=== PATIENT | male | born 1985 | race Two or more races ===

== ENCOUNTER 2019-06-29 10:01 | Emergency (ER) | payer MEDICAID ==
[~2019-06-29] VITALS: Ht 175.3 cm; Wt 99.8 kg
--- NOTE | 2019-06-29 10:11 | NUR ---
ED Nurse Note: Pt ambulated to ED c/o low back pain, denies difficulty of urinating, chills nor fever. Pt is AOx4, on RA, NAD. Per pt he has hx of chlamydia. Placed on bed.
[2019-06-29 10:15] VITALS: BP 123/72
--- NOTE | 2019-06-29 10:17 | NUR ---
ED Nurse Note: Dr. Clayton on bedside.
--- NOTE | 2019-06-29 10:23 | Emergency Room Report ---
History of Present Illness General Chief Complaint: Back Pain-No Injury Source: Patient Present Illness HPI Patient is a 34-year-old male who presents after increased low back pain. Gradual onset of symptoms. Reports having recent pain to the right side. Recently diagnosed and treated with a single dose of antibiotics for chlamydia. Denies any continued discharge. Denies any fever. Had tested negative for HIV as well as syphilis. Denies any fever. Denies any abdominal pain or vomiting or diarrhea. Pain is worse with movement. Allergies: Coded Allergies: No Known Allergies (Unverified , 06/29/19) Patient History Past Medical History: see triage record Reviewed Nursing Documentation: PMH: Agreed; PSxH: Agreed Nursing Documentation-PMH Past Medical History: No Stated History Review of Systems All Other Systems: negative except mentioned in HPI Physical Exam Vital Signs Date Time Temp Pulse Resp B/P (MAP) Pulse Ox O2 Delivery O2 Flow Rate FiO2 06/29/19 10:04 97.3 85 20 123/72 (89) 98 Room Air Sp02 EP Interpretation: reviewed, normal General Appearance: normal inspection, well appearing, no apparent distress, alert, GCS 15 Head: atraumatic ENT: normal ENT inspection, hearing grossly normal, normal voice Neck: normal inspection, full range of motion, supple, no bony tend Respiratory: normal inspection, lungs clear, normal breath sounds, no respiratory distress, no retraction, no wheezing Cardiovascular #1: regular rate, rhythm, no edema Gastrointestinal: normal inspection, normal bowel sounds, non tender, soft, no guarding, no hernia Genitourinary: no CVA tenderness Musculoskeletal: normal inspection, back normal, normal range of motion Neurologic: alert, motor strength/tone normal, global compensation director III-XII nml as tested, oriented x3, responsive, speech normal, normal inspection Psychiatric: normal inspection, judgement/insight normal, mood/affect normal Medical Decision Making Diagnostic Impression: Primary Impression: Back pain ER Course Patient present for low back pain . differential diagnosis included but was not limited to herniated disc, cauda equina syndrome, abdominal aortic aneurysm, perforated ulcer, spinal epidural abscess, spinal stenosis, lumbar fracture, metastatic lesion, pyelonephritis. Patient be empirically treated for a urethritis with doxycycline. Was advised to follow-up with primary care physician for further evaluation and treatment. Patient was noted to have a benign exam and history. Does not show any signs of incontinence or urinary retention. Patient was given prescription for symptomatic treatment. Patient was advised to recheck with primary care physician in 1-2 days. Patient to return for any worsening, pain, fever, incontinence or other concerns. Last Vital Signs Date Time Temp Pulse Resp B/P (MAP) Pulse Ox O2 Delivery O2 Flow Rate FiO2 06/29/19 10:15 97.3 68 20 123/72 98 Room Air Status: improved Disposition: HOME, SELF-CARE Condition: Stable Scripts Ibuprofen* (MOTRIN*) 600 Mg Tablet 600 MG ORAL Q8H PRN for For Pain, #30 TAB 0 Refills Prov: Sven Clayton MD 06/29/19 Doxycycline Monohydrate* (DOXYCYCLINE MONOHYDRATE*) 100 Mg Capsule 100 MG ORAL Q12H, #14 CAP 0 Refills Prov: Sven Clayton MD 06/29/19 Referrals: [facility],REFERRING (PCP) Sven Clayton MD Jun 29, 2019 10:23
--- NOTE | 2019-06-29 10:33 | NUR ---
ED Nurse Note: X-ray on bedside.
--- NOTE | 2019-06-29 10:37 | NUR ---
ED Nurse Note: X-ray done.
[2019-06-29 10:41] LABS: APPEARANCE,URINE CLEAR; BILIRUBIN, URINE NEGATIVE (NEGATIVE); COLOR,URINE PALE YELLOW; GLUCOSE, URINE (UA) NEGATIVE (NEGATIVE); KETONES,URINE NEGATIVE (NEGATIVE); LEUKOCYTE ESTERASE ,URINE NEGATIVE (NEGATIVE); NITRITE,URINE NEGATIVE (NEGATIVE); PH,URINE 6 (4.5-8.0); PROTEIN,URINE NEGATIVE (NEGATIVE); UROBILINOGEN,URINE NORMAL MG/DL (0.0-1.0)
--- NOTE | 2019-06-29 11:13 | Diagnostic Imaging Report ---
Indication: Dyspnea Comparison: None A single view chest radiograph was obtained. Findings: Cardiomediastinal appearance is within normal limits for age. The lungs are clear. Pulmonary vascularity is appropriate. The diaphragmatic contour is smooth and costophrenic angles are sharp. No pleural effusions are identified. The bones are unremarkable. Impression: No acute findings
[2019-06-29] MEDS ORDERED: Lidocaine 1% MPF 10mg/ml 5ml INJ ONE (11:30)
[2019-06-29] MEDS ORDERED: DOXYCYCLINE MO100 MG ORAL (11:36)
[2019-06-29] MEDS ORDERED: IBUPROFEN600 MG ORAL (11:36)
[2019-06-29 11:46] VITALS: BP 124/74
--- NOTE | 2019-06-29 11:46 | NUR ---
ER DISCHARGE NOTE: Pt is cleared to be discharged per ERMD. Pt is AOx4, VSS, on RA. pt was given dc and prescription instructions, pt was able to verbalize understanding, pt id band removed. pt is able to ambulate with steady gait. pt took all belongings.
== END 2019-06-29 11:46 | disposition home or self-care (01) ==
LOC: EMR 10:15
DX: M54.5 Low back pain (principal)
CPT/HCPCS: 71045; 81003; 96372; 96374; J0696; Z7502; 99284

== ENCOUNTER 2020-03-16 18:23 | Emergency (ER) | payer BC, MEDICAID ==
[~2020-03-16] VITALS: Ht 175.3 cm; Wt 99.8 kg
[~2020-03-16 18:23] MED LIST: DOXYCYCLINE MO100 MG ORAL; IBUPROFEN600 MG ORAL
[2020-03-16 18:30] VITALS: BP 143/90
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
[2020-03-16] MEDS ORDERED: ROBAXIN-500MG ORAL (19:00)
[2020-03-16] MEDS ORDERED: IBU800 MG PO (19:00)
[2020-03-16 19:05] VITALS: BP 143/90
--- NOTE | 2020-03-17 16:30 | Diagnostic Imaging Report ---
Indication: Shoulder pain after injury Technique: 3 vies of the left shoulder Comparison: None FINDINGS/IMPRESSION: No acute fracture. Glenohumeral joint maintained. There is mild widening of the acromioclavicular joint suggesting AC joint injury - correlate clinically. No associated acute clavicular fracture is seen. Imaged portions of the lungs clear. No radiopaque foreign body.
== END 2020-03-16 19:05 | disposition home or self-care (01) ==
LOC: EMR 18:56
DX: S43.102A Unspecified dislocation of left acromioclavicular joint, initial encounter (principal); V03.99XA Pedestrian with other conveyance injured in collision with car, pick-up truck or van, unspecified whether traffic or nontraffic accident, initial encounter; Y93.55 Activity, bike riding; Y92.411 Interstate highway as the place of occurrence of the external cause
CPT/HCPCS: 99283